=== PATIENT | male | born 1940 | race Caucasian/White ===

== ENCOUNTER 2016-10-19 21:52 | Emergency (ER) | payer MEDICARE, BC ==
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
[2016-10-19 22:32] LABS: Hematocrit 32.9 % (42.0-52.0); Hemoglobin 10.8 gm/dL (13.5-18.0); Mean Cell Volume 99.4 fl (78-100); Mean Corpuscular Hemoglobin 32.6 pg (27-31); Mean Corpuscular Hgb Conc 32.8 g/dl (32-36); Mean Platelet Volume 10.8 fl (6.0-9.5); Neutrophil # 2.2 K/mm3 (1.3-6.0); Neutrophil % 65.9 % (42-75.0); Platelet Count 106 K/mm3 (150-450); Red Blood Count 3.31 M/mm3 (4.7-6.0); Red Cell Distribution Width 14.2 % (11.5-14.0); White Blood Count 3.4 K/mm3 (4.0-10.5)
[2016-10-19 22:44] LABS: Prothrombin Time (Patient) 21.3 Seconds (9.4-11.4)
[2016-10-19 22:47] LABS: INR 2.05 INR (0.90-1.10)
[2016-10-19 22:54] LABS: Albumin * 3.5 gm/dl (3.4-5.0); Anion Gap 12.5 mmol/L (6.8-13.8); BUN/Creatinine Ratio 25.2 (9.0-21.6); Bilirubin, Total 0.6 mg/dL (0.0-1.1); Calcium * 8.9 mg/dL (7.9-10.9); Carbon Dioxide 28.7 mmol/L (24-32.6); Potassium 5.2 mmol/L (3.4-4.6); Total Protein 6.8 gm/dL (6.2-8.2)
[2016-10-19 22:55] LABS: Troponin I 0.049 ng/ml (0.00-0.10)
[2016-10-19 23:42] VITALS: BP 112/60
== END 2016-10-19 23:20 | disposition home or self-care (01) ==
LOC: ER 21:52
DX: R55 Syncope and collapse (principal); S08.0XXA Avulsion of scalp, initial encounter; S01.01XA Laceration without foreign body of scalp, initial encounter; N18.9 Chronic kidney disease, unspecified; Z87.891 Personal history of nicotine dependence; Z90.49 Acquired absence of other specified parts of digestive tract; Z95.0 Presence of cardiac pacemaker; W19.XXXA Unspecified fall, initial encounter

== ENCOUNTER 2017-01-12 14:10 | Emergency (ER) | payer MEDICARE, BC ==
[2017-01-12 14:35] VITALS: BP 103/64
[2017-01-12] MEDS ORDERED: GLUCAGON,HUMAN RECOMBINANT 1 MG VIAL IV ONE (16:33)
--- NOTE | 2017-01-12 16:38 | ERNOTE ---
Medical Problem HPI - General Chief Complaint: Foreign Body Time Seen by Provider: 01/12/17 16:26 Source: patient Exam Limitations: no limitations - Immun/Allergies/Home Medications Immunizations: IMMUNIZATION HX Immunizations Up to Date Yes History of Influenza Vaccine Yes Allergies/Adverse Reactions: Allergies Penicillins Allergy (Intermediate, Verified 01/12/17 14:35) vancomycin Allergy (Intermediate, Verified 01/12/17 14:35) Home Medications: HOME MEDICATIONS Allopurinol 300 mg PO DAILY 04/04/14 [Last Taken 05/09/15] Aspirin 81 mg PO DAILY 04/04/14 [Last Taken 05/10/15] Cholecalciferol (Vitamin D3) [Vitamin D3] 2,000 unit PO DAILY 04/04/14 [Last Taken Unknown] Gabapentin [Neurontin] 300 mg PO HS 04/04/14 [Last Taken 05/10/15] Simvastatin 20 mg PO HS 04/04/14 [Last Taken 05/09/15] Spironolactone [Aldactone] 12.5 mg PO DAILY 04/04/14 [Last Taken 05/10/15] Terazosin HCl [Hytrin] 5 mg PO HS 04/04/14 [Last Taken 05/09/15] Warfarin Sodium [Coumadin] 5 mg PO MOTH 04/04/14 [Last Taken 05/09/15] Calcitriol 0.25 mcg PO DAILY 12/15/15 [Last Taken 12/14/15] Cyanocobalamin [Vitamin B-12] 1,000 mcg PO DAILY 12/15/15 [Last Taken 12/14/15] Ranitidine HCl 150 mg PO BID PRN 12/15/15 [Last Taken Unknown] Warfarin Sodium [Coumadin] 4 mg PO SUTUWEFRSA 12/17/15 [Last Taken Unknown] Carvedilol [Coreg] 3.125 mg PO BID tablet 12/20/15 [Last Taken Unknown] Insulin Lispro [Humalog] See Protocol SC ACHSINS #1 vial 12/25/15 [Last Taken Unknown] Digoxin [Digitek] 125 mcg PO DAILY 06/21/16 [Last Taken Unknown] Docusate Sodium [Colace] 100 mg PO BID 06/21/16 [Last Taken Unknown] Furosemide [Lasix] 80 mg PO BID 06/21/16 [Last Taken Unknown] Gabapentin [Neurontin] 600 mg PO DAILY 06/21/16 [Last Taken Unknown] Insulin Glargine,Hum.rec.anlog [Lantus] 20 units SC HS 06/21/16 [Last Taken Unknown] Sotalol HCl [Betapace] 60 mg PO BID 06/21/16 [Last Taken Unknown] traMADol HCL [Ultram] 50 mg PO BID PRN 06/21/16 [Last Taken Unknown] Sacubitril/Valsartan [Entresto 49 mg-51 mg Tablet] 1 each PO BID 10/19/16 [Last Taken Unknown] - History of Present History Narrative: Patient was eating a chicken sandwich for lunch when he felt some of it get stuck in his throat, he has been unable to swallow anything since. On the way over here he felt a small piece come back up, not drooling currently. He had food get stuck in his throat once many years ago and it had to be removed by endoscopy Date (Duration): 01/12/17 Time (Timing): 13:00 Review of Systems - Review of Systems Constitutional: Absent: recent illness, fever ENT: Absent: nose congestion, sore throat Respiratory: Absent: shortness of breath, cough Cardiology: Absent: chest pain, palpitations Gastrointestinal/Abdominal: Present: nausea, vomiting. Absent: diarrhea, abdominal pain Genitourinary: Present: no symptoms reported - Patient's Past Medical History Patient History - Medical: Anemia, Arthritis, Diabetes Type 2 Insulin Dependent , Renal Disease, Renal Failure, Other Patient History - Cardiac/Respiratory: CHF, Hypertension Patient History - Cancer: No Hx of Cancer Patient History - Surgical Procedures: Angioplasty, Cholecystectomy, Colonoscopy , Pacemaker, Other Patient History - Other: None - Family History Mother Family History - Medical: Family History - Cardiac/Respiratory: History Unknown Father Family History - Medical: Family History - Cardiac/Respiratory: COPD - Social History Living Situations: home Abuse History: No History of abuse Psych History: No pertinent hx Alcohol Use: occasionally Drug Use: none - Immunizations Immunizations Up to Date: Yes History of Influenza Vaccine: Yes Physical Exam - Physical Exam General Appearance: Present: wd/wn, alert, no apparent distress Ears, Nose, Throat: Present: normal pharynx Respiratory: Present: no respiratory distress, normal breath sounds, chest nontender, lungs clear Cardiovascular/Chest: Present: regular rate, rhythm, no murmur Gastrointestinal/Abdominal: Present: normal bowel sounds, nontender, nondistended, soft Neurological Exam: Present: alert, oriented, normal mood/affect Skin Exam: Present: normal color, warm/dry ED Progress - Vital Signs Patient's Vital Signs:: I have reviewed the patient's vital signs. Vital Signs: Vital Signs 01/12/17 14:31 Pulse Rate 72 Respiratory 19 Rate Blood Pressure 103/64 O2 Sat by Pulse 98 Oximetry - Progress/Reassessment Chief Complaint: Foreign Body Progress Note-Subjective: 01/12/17 16:30 gave patient water to drink, after small sip patient started to gag and vomit 01/12/17 17:12 after glucagon patient is able to drink cup of water without problem Departure - Departure Clinical Impression: Esophageal foreign body Qualifiers: Encounter type: initial encounter Qualified Code(s): T18.108A - Unspecified foreign body in esophagus causing other injury, initial encounter Disposition: Home self-care Condition: Good Instructions: Swallowed Foreign Body, Adult, [id number] Additional Instructions: eat small bites and chew well call your doctor as needed for follow up Referrals: Kiera Brown MD [Primary Care Provider] -
[2017-01-12] MEDS ORDERED: GLUCAGON,HUMAN RECOMBINANT 1 MG VIAL ONE (16:39)
--- OUTSIDE RECORDS SUMMARY | 2017-01-12 16:40 | XMS REPORT | Continuity of Care Document ---
:1940 Author Organization [facility] ([facility]) Address [address] [place] [address] Phone [phone] Care Team Providers Name Role Phone Kiera Brown Primary Care Provider [phone] Source Comments This disclosure is being made pursuant to the Care Everywhere program, applicable federal and state laws, and may not contain all informaitonavailable regarding this patient.[facility] ([facility]) Active Allergies and Adverse Reactions Allergen Noted Date Severity Reactions Comments Penicillins Urticaria (Hives) Vancomycin 12/04/2010 Injection site reaction,Rash Current Medications Prescription Sig. Disp. Refills Start End Status Date Date allopurinol 300 mg take 300 mg by mouth Active tablet daily. insulin lispro inject 0-10 Units Active (HUMALOG) 100 subcutaneously as unit/mL injection needed. sliding scale insulin glargine Inject 20 Units Active (LANTUS) 100 subcutaneously at unit/mL injection bedtime SYRING 1 Syringe as needed. Active W-NDL,DISP,INSUL,0 .5ML (INSULIN SYRINGE) aspirin 81 mg EC take 1 Tab by mouth 30 Tab 11 09/18/20 Active tablet daily. Indications: 09 Myocardial Infarction Prevention terazosin (HYTRIN) Take 5 mg by mouth at Active 5 mg capsule bedtime. traMADol (ULTRAM) Take 1 Tab by mouth 2 30 Tab 0 11/15/19 Active 50 mg tablet times daily as needed 11 for Pain. Indications: Pain calcitriol 0.25 Take 0.25 mcg by mouth Active mcg capsule daily. Twice a day on MWF, daily the rest docusate 100 mg Take 100 mg by mouth 2 Active capsule times daily as needed. simvastatin Take 1 Tab by mouth 30 Tab 11 06/15/20 Active (ZOCOR) 20 mg every evening. 12 tablet Indications: HYPERCHOLESTEROLEMIA miscellaneous CPAP at bedtime Active medical supply ACETAMINOPHEN Take 1 Tab by mouth Active (TYLENOL ARTHRITIS every 6 hours as PAIN PO) needed. cholecalciferol Take 1,000 Units by Active (VITAMIN D3) 1,000 mouth daily. unit tablet gabapentin 600 mg Take 600 mg by mouth Active tablet daily. In morning gabapentin 300 mg Take 300 mg by mouth at Active capsule bedtime. octreotide inject 20 mg Active (SandoSTATIN LAR intramuscularly every 4 DEPOT) 20 mg weeks. Alternate injection injection site to avoid irritation. WARFARIN 5 mg 6-0-5-4-5-5-4 03/14/20 Active tablet Alternating doses 15 KETOCONAZOLE 2 % 06/13/20 Active cream 15 TRIAMCINOLONE 0.1 06/13/20 Active % cream 15 ranitidine 150 mg Take 1 tablet (150 mg 60 tablet 11 08/23/20 Active tablet total) by mouth 2 times 15 daily as needed carvedilol 6.25 mg Take 0.5 tablets (3.125 60 tablet 11 02/26/20 Active tablet mg total) by mouth 2 16 times daily. furosemide 40 mg Take 2 tablets (80 mg 120 11 05/09/20 Active tablet total) by mouth 2 times tablet 16 daily. sacubitril-valsart Take 1 tablet by mouth 60 tablet 3 10/15/20 Active an (ENTRESTO) 2 times daily. 16 49-51 mg per tablet sotalol (SOTALOL Take 0.5 tablets (60 mg 90 tablet 3 01/13/20 Active AF) 120 mg tablet total) by mouth 2 times 17 daily. sotalol (SOTALOL Take 0.5 tablets (60 mg 90 tablet 3 01/08/20 AF) 120 mg tablet total) by mouth 2 times 16 2017 daily. Active Problems Problem Noted Date Osteoarthritis of both shoulders 09/21/2014 CKD (chronic kidney disease) stage 3, GFR 30-59 ml/min 06/01/2014 Biventricular ICD (implantable cardioverter-defibrillator) in place - 2013 [employer] - [employer] Ventricular tachycardia 03/26/2012 Dizziness 03/26/2012 CAD (coronary artery disease) 09/18/2009 Overview: myocardial infarction twice 1990 and 1994 Ischemic cardiomyopathy 09/18/2009 Overview: EF 20% Diabetes mellitus, type II 09/17/2009 ROBERT (obstructive sleep apnea) 09/17/2009 Overview: untreated H/O: pituitary tumor 09/17/2009 Overview: transsphenoidal pituitary surgery in 1987 with normalization of growth hormone Atrial fibrillation 09/17/2009 GERD (gastroesophageal reflux disease) 09/17/2009 Dyspnea 09/17/2009 Acromegaly 06/07/2009 Overview: Secondary to pituitary gland tumor Pain in joint, shoulder region 02/23/2007 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/21/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 Chronic systolic heart failure 08/21/2005 Spinal stenosis, unspecified region other than cervical 07/29/2005 Lumbago 05/02/2005 Primary localized osteoarthrosis, shoulder region 09/14/2001 Resolved Problems Problem Noted Date Resolved Date Hematoma 10/02/2014 10/04/2015 Bruising 09/30/2014 10/04/2015 Inguinal hernia without mention of obstruction or gangrene, 05/04/20082012 unilateral or unspecified, (not specified as recurrent) Unspecified cardiac device in situ 03/04/2006 02/02/2014 Overview: Bi-V ICD placed 03/2006 RENAL & URETERAL DIS NOS 10/21/2005 02/07/2013 MEDIAN NERVE LESION NEC 09/15/2001 02/07/2013 ULNAR NERVE LESION 09/15/2001 02/07/2013 Most Recent Encounters Date Type Specialty Providers Description 01/12/2017 Refill Heart and Vascular Gama Alvarez Dx: Ajay Thurston MD tachycardia (Primary Dx) 12/19/2016 Office Visit Med Endocrinology Default, Other Subj: Upcoming Appt Billg - Defo Reminder Tonie Fritz MD 11/25/2016 Orders Only Heart and Vascular Tatiana Jung Dx: Hyperkalemia 11/21/2016 Office Visit Med Endocrinology Default, Other Subj: Upcoming Appt Billg - Defo Reminder Emma Leger MD 11/06/2016 Hospital Encounter [facility] Chief Comp: Patient MD Bertrand Reported Reason For Visit 10/28/2016 Office Visit Heart and Vascular Kortney Suresh, Dx: Chronic systolic MD congestive heart failure (Primary Dx) 10/17/2016 Office Visit Med Endocrinology Default, Other Subj: Appointment Billg - Defo Scheduled Tonie Fritz MD 10/15/2016 Refill Heart and Vascular Ana Barnes Dx: Chronic systolic J, [employer]ATION heart failure (Primary Dx) Immunizations Name Dates Previously Given Next Due Influenza, PF 07/29/2012,08/12/2011 Influenza, unspecified 07/19/2015,07/22/2010,08/19/2007,07/19/2006,2004,08/05/2004 Pneumococcal, unspecified 07/19/2005 Zoster, live (Zostavax) 09/01/2012 Social History Tobacco Use Types Packs/Day Years Used Date Former Smoker Cigarettes 1.5 20 Quit: 10/19/1990 Smokeless Tobacco: Never Used Tobacco Cessation:Counseling Given: Yes Comments: Alcohol Use Drinks/Week oz/Week Comments No 0.5 glass of beer every 3-4 months Last Filed Vital Signs Vital Sign Reading Time Taken Blood Pressure 102/62 10/28/2016 9:54 AM PARTS CLERK Pulse 65 10/28/2016 9:54 AM PARTS CLERK Temperature 36.3 C (97.4 F) 10/28/2016 9:54 AM PARTS CLERK Respiratory Rate 16 10/28/2016 9:54 AM PARTS CLERK Height 1.93 m (6' 3.98") 10/28/2016 9:54 AM PARTS CLERK Weight 105.235 kg (232 lb) 10/28/2016 9:54 AM PARTS CLERK Body Mass Index 28.25 10/28/2016 9:54 AM PARTS CLERK Oxygen Saturation 98% 10/28/2016 9:54 AM PARTS CLERK Plan of Care Date Type Specialty Providers Description 01/19/2017 Appointment [facility] and V[facility] Gama Alvarez, Subj: Appointment Rescheduled [address] [place] [address] [phone] (Fax) 02/24/2017 Appointment Heart and Vascular Kortney Suresh MD Subj: Appointment [address] [place] [address] [phone] (Fax) 07/20/2017 Appointment [facility] V[facility] Gama Alvarez, Subj: Appointment Rescheduled [address] [place] [address] [phone] (Fax) Health Maintenance Due Date Last Done Comments Hepatitis B Vaccine (1 of 3 - 1940 Primary Series) Tdap Vaccine 1951 DIABETIC: Microalbumin 1960 Td Vaccine 1958 Pneumococcal Vaccine (1 of 2 2007 - PCV13) DIABETIC: Foot Exam 04/01/2011 DIABETIC: Retinal Eye Exam 04/01/2011 DIABETIC: Cholesterol 05/07/2016 05/07/2015, Additional history exists 03/27/2012, 11/25/2011 Diabetic: Hdl 05/07/2016 05/07/2015, Additional history exists 03/27/2012, 11/25/2011 Diabetic: Ldl 05/07/2016 05/07/2015, Additional history exists 03/27/2012, 11/25/2011 DIABETIC: Triglycerides 05/07/2016 05/07/2015, Additional history exists 03/27/2012, 11/25/2011 Influenza Vaccine: Seasonal 05/19/2016 07/19/2015, Additional history exists (#1) 07/29/2012, 08/12/2011 DIABETIC: Hemoglobin A1C 01/27/2017 07/29/2016, Additional history exists 01/15/2016, 05/07/2015 Prostate Cancer Screening 07/19/2017 07/19/2015, Additional history exists 07/11/2014, 07/05/2013 Colonoscopy 02/14/2024 02/13/2014 Zoster Vaccine Completed 09/01/2012 Results from Last 3 Months EXTERNAL CBC WITH DIFFERENTIAL (12/08/2016) Component Value Range Ext WBC Count 3.7(A) 4.8-10.8 K/MM3 Ext RBC Count 3.21(A) 4.60-6.00 M/MM3 Ext Hemoglobin 10.3(A) 14.0-18.0 G/DL Ext Hematocrit 31.3(A) 42.0-52.0 % Ext MCV (Mean Corpuscular Volume) 97.5(A) 80.0-94.0 fL Ext MCH-Mean Corpuscular Hemoglobin 32.1 25.0-38.0 pg/cell Ext MCHC-Mean Corpuscular Hgb Concentration 32.9 31.0-37.0 g/dL Ext Platelet Count 119(A) 130-400 K/MM3 Ext RDW-Red Cell Distribution Width 54.0(A) 1.0-48.0 fL Ext Neutrophils 2.4 1.5-5.9 K/MM3 Ext Lymphocytes 1.0(A) 1.5-4.0 K/MM3 Ext Monocytes 0.2 0.0-0.9 K/MM3 Ext Eosinophils 0.1 0.0-0.7 K/MM3 Ext Basophils 0.0 0.0-0.2 K/MM3 Ext % Neutrophils 64.4 50.0-75.0 % Ext % Lymphs 25.8 15.0-41.0 % Ext % Monocytes 6.3 2.0-10.0 % Ext % Eosinophils 3.5 0.0-6.0 % Ext % Basophils 0.0 0.0-1.0 % EXTERNAL BASIC METABOLIC PANEL (W/CALCIUM TOTAL) (11/25/2016) Component Value Range Ext Calcium 9.2 6-13 MG/DL Ext CO2 28.0 24-32 MEQ/L Ext Chloride 107 95-107 MEQ/L Ext Creatinine 1.92(A) 0.7-1.4 MG/DL Ext Glucose 197(A) 65-99 MG/DL Ext Potassium 4.5 3.5-5.0 MEQ/L Ext Sodium 144 135-145 MEQ/L Ext BUN 67(A) 10-20 MG/DL EXTERNAL CHEM 7 (11/11/2016) Component Value Range Ext Glucose 176(A) 70-110 MG/DL Ext Creatinine 1.89(A) 0.4-1.4 MG/DL Ext BUN 64(A)Comment:BUN/Cr ratio 33.9 (H) (9.0-21.6) 6-23 MG/DL Ext CO2 27.2 24-32.6 MEQ/L Ext Chloride 106 97-106 MEQ/L Ext Potassium 4.6 3.4-4.6 MEQ/L Ext Sodium 142Comment:sodium, corrected for Glucose 143mmol/L 132-142 MEQ/L (H) (130-142) Ext Calculated GFR 37(A) 60-130 mL/min Ext Anion Gap 13.4 6.8-13.8 mmol/L Ext Calcium 9.3 7.9-10.9 MG/DL
== END 2017-01-12 17:22 | disposition home or self-care (01) ==
LOC: ER 14:10
DX: T18.128A Food in esophagus causing other injury, initial encounter (principal)